=== PATIENT | female | born 1935 | race Caucasian/White ===

== ENCOUNTER 2017-12-04 16:17 | Inpatient (IN) | payer MEDICARE ==
--- NOTE | 2017-12-04 17:43 | RAD ---
PELVIS ONE VIEW 12/04/17 HISTORY: Recent fall. COMPARISON: None. FINDINGS: Fracture right inferior and superior pubic rami as well as a fracture of the right pubic root. There appears to be a fracture of the right sacral strut at zone I, S1 and S2. IMPRESSION: Fracture of the right superior and inferior pubic rami, right pubic root, as well as the right sacrum . POS: [facility]
--- NOTE | 2017-12-04 17:50 | RAD ---
RIGHT HIP TWO VIEW 12/04/17 HISTORY: Fall. COMPARISON: None. FINDINGS: Fracture of the right pubic root, right superior and inferior pubic rami as well as of the right sacr um. There are phleboliths in the pelvis. IMPRESSION: Fracture of the right pubic root, right superior and inferior pubic rami, and right sacrum. POS: [facility]
[2017-12-04 18:03] LABS: #Monocytes 0.7 thou/uL (0.11-0.59); #Neutrophils 7.8 thou/uL (1.40-6.50); %Basophils 0.1 % (0.0-1.0); %Eosinophils 0.1 % (0.0-10.0); %Monocytes 7.5 % (0.0-10.0); %Neutrophils 82.3 % (42.0-75.0); Hemoglobin 12.4 g/dL (12.0-16.0); Mean Corpuscular HGB CONC 33.6 g/dL (32.0-36.0); Mean Corpuscular Hemoglobin 33.3 pg (27.0-31.0); Mean Corpuscular Volume 99.1 fl (81.0-99.0); Mean Platelet Volume 6.3 fL (7.4-10.4); Platelet Count 206 thou/uL (130-400); RBC Distribution Width 11.9 % (11.5-14.5); Red Blood Cell (RBC) Count 3.71 mill/uL (4.20-5.40); White Blood Cell (WBC) Count 9.5 thou/uL (4.8-10.8)
[2017-12-04 18:20] LABS: ALT (SGPT) 19 U/L (8-55); AST (SGOT) 16 U/L (5-34); Albumin 3.1 g/dL (3.4-4.8); Alkaline Phosphatase 89 U/L (40-150); Anion Gap 13 mmol/L (10-20); BUN (Urea Nitrogen) 20 mg/dL (9.8-20.1); Bilirubin, Total 1.3 mg/dL (0.2-1.2); Calc. Creatinine Clearance 0 mL/min (70-130); Calcium 9.7 mg/dL (7.8-10.44); Carbon Dioxide 24 mmol/L (23-31); Chloride 98 mmol/L (98-107); Estimated GFR-MDRD 46; Globulin 2.8 g/dL (2.4-3.5); Glucose 94 mg/dL (83-110); Potassium 4.8 mmol/L (3.5-5.1); Protein, Total 5.9 g/dL (6.0-8.3); Sodium 130 mmol/L (136-145)
[2017-12-04 18:25] LABS: Bilirubin Small (Negative); Blood, Urine Negative (Negative); Clarity CLEAR (Clear); Glucose, Urine (Dipstick) Negative (Negative); Leukocyte Negative (Negative); Nitrite Negative (Negative); Protein, Urine (Dipstick) Trace mg/dL (Neg-Trace); Specific Gravity, Urine 1.023 (1.002-1.036); Urobilinogen 0.2 mg/dL (0.2-1.0)
[2017-12-04] MEDS ORDERED: Acetaminophen 1,000 MG in Premix Bag 1 BAG IVPB SCH (19:30)
[2017-12-04 19:52] LABS: CKMB 0.7 ng/mL (0-6.6); Troponin I 0.048 ng/mL (< 0.028)
[2017-12-04] MEDS ORDERED: hydrALAZINE 20 MG/ML VIAL ONE (20:20)
[2017-12-04] MEDS ORDERED: HYDROcodone/Acetaminophen 5/325 mg Tablet ONE (20:55)
--- NOTE | 2017-12-04 21:39 | RAD ---
CHEST ONE VIEW 12/04/17 HISTORY: Fall. COMPARISON: Chest radiograph from 2004. FINDINGS: There is prominence of the hilum on the right. Nodular projects over the right lung apex. Lungs are h yperinflated. Previous right lower lobe air space opacity as well as obscuration right lateral costophrenic sulcus. Mild S-shaped scoliosis. No displaced rib fracture. IMPRESSION: 1. Prominence of the hilum bilaterally can be seen with pulmonary arterial hypertension or adeno fan. 2. Blunting right lateral costophrenic sulcus with right lower lobe air space consolidation conc erning for infection. 3. Nodularity of the right lung apex. Nonemergent followup recommended. POS: [facility]
--- NOTE | 2017-12-04 21:41 | RAD ---
LEFT WRIST TWO VIEW 12/04/17 HISTORY: Fall. COMPARISON: None. FINDINGS: There is extensive chondrocalcinosis. Severe degenerative disease of the thumb carpometacarpal joint as well as the scaphotrapezium trapezoidal joint. Positive ulnar variance. Erosion of the ulnar stylo id. There is fusion of the hamate and capitate. IMPRESSION: Chondrocalcinosis and subsequent severe degenerative changes. POS: [facility]
--- NOTE | 2017-12-04 21:49 | CT ---
CT OF BRAIN WITHOUT CONTRAST 12/04/17 HISTORY: Fall. COMPARISON: None. FINDINGS: There are multiple areas of loss of luna-white matter differential of occipital lobes bilaterally as well as right parietal lobe. This appears somewhat chronic in nature. There is moderate to severe atr ophy. Moderate dilatation of the ventricular system and extra-axial CSF spaces. Large inferior microangiopathic changes. No hemorrhage is appreciated. Exam is limited due to the obliquity of the scan. The calvarium is intact. IMPRESSION: 1. Limited examination due to obliquity. No acute hemorrhage. 2. Moderate to severe atrophy with chronic microangiopathic changes. POS: [facility]
--- NOTE | 2017-12-04 22:00 | CT ---
CT OF CHEST NONCONTRAST CT THORACIC SPINE WITHOUT CONTRAST AND REFORMATTED IMAGING 12/04/17 CLINICAL HISTORY: Fall with pain. FINDINGS: The thoracic spine reveals multilevel compression deformity with a severe compression fracture of T11 as well as a multilevel end plate irregularity. Previously mild multilevel height loss of the thorac ic spine. There is also a moderate to severe central compression fracture of L1 as well mild to moder ate superior end plate irregularity of L2 and L3. There is a chronic appearing fracture deformity of the manubrium as well as osseous irregularity involving the proximal and distal aspect of the sternal body some of which is distorted by motion artifact, although fractures at the sternal body are not e xcluded. There is multifocal bilateral opacification of pulmonary parenchyma favoring atypical pneumo marichuy along with mild right and minimal left pleural fluid. The lungs are hyperinflated related to COPD . There is atherosclerotic vascular disease. Evaluation of the regional soft tissues is limited by no ncontrast technique. There is bilateral bronchiectasis. IMPRESSION: 1. Multilevel compression deformities of the thoracolumbar spine as above. 2. Fracture deformities of the sternum as above, limited by patient motion. 3. Findings most consistent with multifocal, atypical bilateral pneumonia with associated minima l to mild pleural fluid. POS: [facility]
--- NOTE | 2017-12-04 22:01 | HP ---
REQUESTING PHYSICIAN: Dr. Wilkinson. ATTENDING SURGEON: Dr. Keller. CONSULTATION: Orthopedics, Dr. Dickson. HISTORY OF PRESENT ILLNESS: The patient is an 82-year-old woman, who reportedly fell 3 day s ago injuring her right hip. She was able to continue to ambulate somewhat and then fell again on t he following day. At this time, she remained in bed. When family members checked on her, they broug ht her to the Emergency Department where she underwent evaluation. Examination was noted to have ski n tears on her left upper extremity and radiographs revealed right-sided inferior and superior pubic rami fracture and a sacral fracture at which time we are asked to evaluate the patient for admission and obtained orthopedic consultation. By report from the family and the patient, she denies loss of consciousness or striking her head during either the falls and had no loss of consciousness, shortnes s of breath, dizziness, or chest pain. ALLERGIES: No known drug allergies. CURRENT MEDICATIONS: Tylenol with codeine. Family reports that the patient has been off blood press ure medicines for at least 6 months now. PAST MEDICAL HISTORY: Hypertension, osteoporosis, chronic kidney disease, and vertebral compression fractures. PAST SURGICAL HISTORY: Exploratory laparotomy done in her 20s. Family is unsure of why patient repo rts it was for fertility reasons. SOCIAL HISTORY: The patient currently resides with her sister. She denies alcohol or drug use, but does admit to chewing tobacco. REVIEW OF SYSTEMS: A ten-point review of systems is negative unless otherwise stated. PHYSICAL EXAMINATION: VITAL SIGNS: Blood pressure 178/85, heart rate 87, respirations 16, oxygen saturation is 93% on room air, temperature is 98.6. GENERAL: The patient is resting in the ER bed. She is alert and oriented, responds to simple questi ons appropriately and follows simple commands. Of note, the patient is a very frail, emaciated appea ring woman. HEENT: Head is normocephalic and atraumatic. Eyes, extraocular motions are intact. PERRLA bilatera lly. Ears are atraumatic without discharge. Nose is atraumatic without discharge. Oropharynx is cl ear. The mucous membranes appear dry. NECK: Nontender. Trachea is midline. No JVD. CHEST: Clear to auscultation with moderate inspiratory and expiratory effort. HEART: Regular rate and rhythm. ABDOMEN: Soft, flat and nontender. PELVIS: The patient has significant tenderness to her right side and she lies most comfortably on he r left side with her hip propped up. Her legs somewhat flexed. EXTREMITIES: Neurovascularly intact at times x4. The patient has tenderness to palpation to left wr ist and skin tear was noted. BACK: Atraumatic and nontender. LABORATORY FINDINGS: White blood cell count 9.5, hemoglobin 12.4, hematocrit 36.8, platelets 206. S odium 130, potassium 4.8, chloride 98, CO2 of 24, BUN 20, creatinine 1.12, glucose 94. LFTs are unre markable RADIOGRAPHS: AP pelvis shows a fracture of the right superior and inferior pubic rami, right pubic r oot as well as right sacrum. Two-view of the right hip shows the same. AP chest shows the questiona ble consolidation in the right middle lobe, the right wrist shows no fracture dislocation, significan t osteopenia is noted. ASSESSMENT AND PLAN: 1. Status post ground-level fall with the delayed presentation. 2. Right superior and inferior pubic rami fracture. 3. Right sacral fracture. 4. Left upper extremity skin tear. 5. Significant deconditioning. 6. Acute pain secondary to trauma. 7. Hyponatremia. PLAN: Admit to the surgical floor. Discussion with Orthopedics. Recommended weightbearing as chivo ated. Physical and Occupational Therapy. Gastritis and mechanical DVT prophylaxis. We will await r adiologic interpretation of the chest x-ray. The evaluation, examination, laboratory and radiographi c findings were discussed with Dr. Keller. We will see the patient once she is up on the floor.
[2017-12-04] MEDS ORDERED: traMADol HCl 50 MG TAB PO PRN ×2 (22:03)
[2017-12-04] MEDS ORDERED: Dextrose 50% Abboject 50 ML SYRINGE SLOW IVP PRN (22:03)
[2017-12-04] MEDS ORDERED: Ondansetron ODT 4 MG TAB PO PRN (22:03)
[2017-12-04] MEDS ORDERED: Dextrose 5% in Water 1,000 ML IV PRN (22:03)
[2017-12-04] MEDS ORDERED: Ondansetron HCl/PF 4 MG/2 ML Vial IVP PRN (22:03)
[2017-12-04] MEDS ORDERED: hydrALAZINE 20 MG/ML VIAL SLOW IVP PRN (22:03)
[2017-12-04 22:15] LABS: Bacteria/HPF Rare-Few HPF (None Seen); Hyaline Casts/LPF 0-3 HYALINE CAST LPF (0-3 Hyaline); RBC/HPF 0-3 HPF (0-3); Squamous Epithelial 0-3 HPF (0-3); WBC/HPF 0-3 HPF (0-3)
[2017-12-04] MEDS: Sodium Chloride 0.9% 1,000 ML IV SCH (22:52)
[2017-12-04] MEDS: Famotidine 20 MG TAB PO SCH (22:52)
[2017-12-05 00:13] VITALS: BMI 15.4
[2017-12-05] MEDS: Acetaminophen 500 MG TAB PO SCH ×6 (01:25→21:22)
[2017-12-05 06:26] LABS: #Eosinphils 0.1 thou/uL (0.0-0.7); #Monocytes 0.7 thou/uL (0.11-0.59); #Neutrophils 5.9 thou/uL (1.40-6.50); %Basophils 0.3 % (0.0-1.0); %Eosinophils 0.6 % (0.0-10.0); %Monocytes 9.1 % (0.0-10.0); Hemoglobin 11.3 g/dL (12.0-16.0); Mean Corpuscular HGB CONC 33.4 g/dL (32.0-36.0); Mean Corpuscular Volume 98.8 fl (81.0-99.0); Mean Platelet Volume 6.5 fL (7.4-10.4); Platelet Count 215 thou/uL (130-400); RBC Distribution Width 11.9 % (11.5-14.5); Red Blood Cell (RBC) Count 3.41 mill/uL (4.20-5.40); White Blood Cell (WBC) Count 7.7 thou/uL (4.8-10.8)
[2017-12-05 06:43] LABS: Anion Gap 11 mmol/L (10-20); BUN (Urea Nitrogen) 21 mg/dL (9.8-20.1); Calc. Creatinine Clearance 23 mL/min (70-130); Calcium 9.3 mg/dL (7.8-10.44); Carbon Dioxide 24 mmol/L (23-31); Chloride 100 mmol/L (98-107); Estimated GFR-MDRD 51; Glucose 89 mg/dL (83-110); Phosphorus 4.4 mg/dL (2.3-4.7); Potassium 4.8 mmol/L (3.5-5.1); Sodium 130 mmol/L (136-145)
[2017-12-05] MEDS ORDERED: hydrALAZINE 20 MG/ML VIAL SLOW IVP PRN (11:45)
[2017-12-05] MEDS: Sodium Chloride 0.9% 1,000 ML IV SCH (11:57)
[2017-12-05] MEDS ORDERED: hydrALAZINE 10 MG TAB PO PRN (12:34)
--- NOTE | 2017-12-05 18:52 | PRG ---
DATE OF SERVICE: 12/05/2017 SUBJECTIVE: The patient is hospital day #2 status post admission for a ground-level fall x2 in which she sustained right-sided pelvic fractures, specifically right superior and inferior pubic rami and right sacral fracture along with some skin tears. The patient this morning states that her pain is c ontrolled and she is attempting to eat breakfast. By report from physical therapy, she was able to a t least stand for a few minutes before getting tired. PHYSICAL EXAMINATION: VITAL SIGNS: Temperature is 97.7, heart rate is 68, blood pressure 177/93, respirations 16, oxygen s aturation 94% on 2 liters via nasal cannula. GENERAL: The patient is resting. The patient responds to verbal stimuli and is appropriate and answ ers stating that she is not in pain. HEENT: Unremarkable. LUNGS: Clear to auscultation with moderate inspiratory and expiratory effort. HEART: Regular rate and rhythm. ABDOMEN: Soft, flat with hypoactive bowel sounds and nontender. EXTREMITIES: Neurovascularly intact x4. Her skin tears have been dressed. LABORATORY DATA: White blood cell count 7.7, hemoglobin 11.3, hematocrit 33.7, platelets 215. Sodiu m 130, potassium 4.8, chloride 100, CO2 of 24, BUN 21, creatinine 1.03, glucose 89, magnesium 2.0, ph osphorus 4.4. There are no radiographs to review this morning. ASSESSMENT AND PLAN: 1. Status post ground-level fall with delayed presentation. 2. Right superior and inferior pubic rami fracture. 3. Right sacral fracture. 4. Left upper extremity skin tear. 5. Significant deconditioning. 6. Acute pain secondary to trauma. 7. Hyponatremia, chronic. Plan will be to continue physical and occupational therapy. Case management consult for placement in shelter versus rehabilitation and continue supportive care. The evaluation and examination were done with Dr. Keller during rounds this morning.
[2017-12-05] MEDS: Famotidine 20 MG TAB PO SCH (21:22)
--- NOTE | 2017-12-05 23:35 | PRG ---
DATE OF SERVICE: 12/05/2017 SUBJECTIVE: The patient is hospital day #2 status post ground-level fall, nonoperative pelvic fractu res. The patient reports pain is well controlled. She reports feeling better. Family is at bedside and has no questions at this time. The patient worked with physical therapy earlier. She vocalized no complaint this evening. OBJECTIVE: VITAL SIGNS: Reviewed and stable. The patient is afebrile, resting in bed in no acute distress. LUNGS: Breathing is nonlabored. ASSESSMENT AND PLAN: As documented in daily progress note. Continue care as ordered. Continue vel toring.
[2017-12-06] MEDS: Acetaminophen 500 MG TAB PO SCH ×3 (01:45→08:24)
[2017-12-06] MEDS: Acetaminophen 325 MG TAB PO SCH ×3 (13:11→20:45)
[2017-12-06] MEDS: Famotidine 20 MG TAB PO SCH (20:45)
--- NOTE | 2017-12-06 23:37 | PRG ---
DATE OF SERVICE: 12/06/2017 SUBJECTIVE: Deon Mcgrath is an 82-year-old female status post fall with pubic rami fractures. Hollis carlos has been hemodynamically stable. She worked with physical therapy earlier today. Upon my evaluat ion, family is at bedside along with her medical power of erisa attorney. Nursing staff alerted me to the fact that she has an advanced directive. I discussed this with the patient and the family at bedside and her advanced directive is specifically states that the patient does not want to be intubated; ho wever, she is okay with aggressive medical therapy. The issue of CPR and defibrillation was not addr essed in the advanced directive. I specifically asked the patient in the event of a cardiac arrest, what her wishes were. She does not wish to have CPR, defibrillation, or intubation. At this time, juanis parth's medical power of erisa attorney is at bedside and vocalized understanding. At this time, the raymond ja's code status will be changed to DNR. OBJECTIVE: VITAL SIGNS: Reviewed and stable. GENERAL: Patient is mildly hypertensive. Resting in bed in no acute distress. PULMONARY: Breathin g is nonlabored. NEUROLOGIC: No focal deficit noted. ASSESSMENT AND PLAN: As documented in the daily progress note. Continue care as ordered. Continue to monitor. In addition to code status, patient and family requested inpatient rehabilitation consul tatdanish. I will also order this at this time.
[2017-12-07] MEDS: Acetaminophen 325 MG TAB PO SCH ×6 (00:17→20:50)
--- NOTE | 2017-12-07 13:46 | PQF ---
SETH HASKINS VINCENT U [id number] [facility] 3319 [id number] CLINICAL DOCUMENTATION IMPROVEMENT CLARIFICATION FORM: ICD-10 Updated PLEASE DO AN ADDENDUM TO THE PROGRESS NOTE WITH ANY DOCUMENTATION UPDATES OR ADDITIONS AND CARRY THROUGH TO DC SUMMARY. THANK YOU. Date: 12-07-17 ATTN : DR. RHEA HADLEY Please exercise your independent, professional judgment in responding to the clarification form. Clinical indicators are provided on the bottom of this form for your review Please check appropriate box(s): [ ] Protein Calorie Malnutrition: [ ] Mild [ x ] Moderate [ ] Severe [ ] Other Malnutrition (please specify) __ [ ] Underweight without malnutrition [ x ] Cachexia [ ] Other diagnosis [ ] Unable to determine CLINICAL INDICATORS - SIGNS / SYMPTOMS / LABS BMI of 15.4 ER: CACHEXIA 1-6 PN - CHERYL: EMACIATED APPEARING WOMAN; SIGNIFICANT DECONDITIONING 1-6 DIETARY CONSULT: * The pt is visibly malnourished. * Severe muscle wasting noted to temples, clavicles, arms. Severe fat wasting to chest/ribs and orbital area. * The pt is supposed to be getting Ensure TID at home, * In the last 2 years the pt has lost ~20# since the first time she injured her back. She reports weighing 79# in Sep 2017 and 99# max in 2016. RISK FACTORS DIETARY CONSULT - SUSPECTED CHRONIC POOR INTAKE TREATMENT: 1-6 DIETARY CONSULT: 1. Continue regular diet type. Recommend adding mech soft textures. 2. Recommend ordering Ensure Enlive TID. 3. Consider adding appetite stimulant. THANK YOU, FILOMENA (This form is maintained as a part of the permanent medical record) 2014 [employer]. All Rights Reserved Filomena Pathak RN, BS [email or web address] Cell [facility]
[2017-12-07] MEDS: Acetaminophen 650 MG/20.3 ML UDCUP PO PRN ×2 (14:01→22:21)
--- NOTE | 2017-12-07 17:32 | PRG ---
DATE OF SERVICE: 12/07/2017 SUBJECTIVE: The patient is hospital day #3 status post admission for ground level fall. She sustain ed a right-sided pelvic fracture. The patient has had no issues overnight other than some hypertensi on issues. The patient had previously been on blood pressure medicines, but had discontinued recentl y. We asked the family to please find out what medicine she was on. It appears that they will proba moni need to be restarted again. Pain may be a part of this contributing factor, but they appear to b e being consistently somewhat elevated. The patient is tolerating a diet and was able to stand for a few minutes with physical therapy and has not yet worked with them this morning. PHYSICAL EXAMINATION: VITAL SIGNS: Temperature is 97.7, heart rate 79, blood pressure 176/92, respirations 18, oxygen satu ration 94% on room air. HEENT: Unremarkable. GENERAL: The patient is resting comfortably in bed. She responds appropriately to verbal stimuli an d follows simple commands. LUNGS: Clear to auscultation bilaterally. HEART: Regular rate and rhythm. ABDOMEN: Soft, flat with hypoactive bowel sounds and nontender. EXTREMITIES: Neurovascularly intact x4. Left upper extremity dressing is clean, dry, and intact. LABORATORY DATA: There are no labs or radiographs to review this morning. ASSESSMENT AND PLAN: 1. Status post ground level fall. 2. Right superior and inferior pubic rami fracture. 3. Right sacral fracture. 4. Left upper extremity skin tear. 5. Severe deconditioning. Plan will be to continue awaiting placement in a skilled facility versus rehabilitation. Continue maddox pportive care.
--- NOTE | 2017-12-07 21:07 | PRG ---
DATE OF SERVICE: 12/07/2017 SUBJECTIVE: This is an 82-year-old female status post mechanical fall with pubic rami fractures. Pa in is controlled via p.o. analgesics. Patient is currently awaiting bed availability at inpatient re habilitation. Localized with no complaints this evening. OBJECTIVE: VITAL SIGNS: Reviewed and stable. Last blood pressure 139/82, although she was hypertensive earlier on the day. GENERAL: Patient is resting in bed, no acute distress. LUNGS: Breathing is nonlabored. ASSESSMENT AND PLAN: As documented in daily progress note. Continue care as ordered. Continue to m onitor. Await bed availability.
[2017-12-07] MEDS: Famotidine 20 MG TAB PO SCH (22:21)
[2017-12-08] MEDS: Acetaminophen 325 MG TAB PO SCH ×6 (01:35→20:31)
[2017-12-08] MEDS: Acetaminophen 650 MG/20.3 ML UDCUP PO PRN ×4 (02:13→21:40)
[2017-12-08 06:54] LABS: #Lymphocytes 1.2 thou/uL (1.20-3.40); #Monocytes 0.5 thou/uL (0.11-0.59); #Neutrophils 6.3 thou/uL (1.40-6.50); %Basophils 0.3 % (0.0-1.0); %Eosinophils 0.6 % (0.0-10.0); %Lymphocytes 14.3 % (21.0-51.0); %Monocytes 6.4 % (0.0-10.0); %Neutrophils 78.6 % (42.0-75.0); Hemoglobin 10.9 g/dL (12.0-16.0); Mean Corpuscular HGB CONC 32.7 g/dL (32.0-36.0); Mean Corpuscular Hemoglobin 32.7 pg (27.0-31.0); Mean Corpuscular Volume 99.9 fl (81.0-99.0); Mean Platelet Volume 5.7 fL (7.4-10.4); Platelet Count 306 thou/uL (130-400); RBC Distribution Width 12.1 % (11.5-14.5); Red Blood Cell (RBC) Count 3.33 mill/uL (4.20-5.40); White Blood Cell (WBC) Count 8.1 thou/uL (4.8-10.8)
[2017-12-08 07:17] LABS: Anion Gap 10 mmol/L (10-20); BUN (Urea Nitrogen) 25 mg/dL (9.8-20.1); Calc. Creatinine Clearance 23 mL/min (70-130); Calcium 9.5 mg/dL (7.8-10.44); Carbon Dioxide 29 mmol/L (23-31); Chloride 100 mmol/L (98-107); Estimated GFR-MDRD 51; Glucose 84 mg/dL (83-110); Magnesium 1.6 mg/dL (1.6-2.6); Phosphorus 2.5 mg/dL (2.3-4.7); Potassium 4.4 mmol/L (3.5-5.1); Sodium 135 mmol/L (136-145)
[2017-12-08] MEDS: Amlodipine 5 MG TAB PO SCH (08:24)
--- NOTE | 2017-12-08 19:16 | PRG ---
DATE OF SERVICE: 12/08/2017 ATTENDING PHYSICIAN: Randy Keller D.O. SUBJECTIVE: The patient is status post ground level fall with right superior and inferior pubic rami fracture. She has been managed nonoperatively on the floor. She has been working with physical and occupational therapy. Case management has been involved for discharge planning. OBJECTIVE: VITAL SIGNS: Temperature 97.6, pulse 82, blood pressure 138/87, respirations 16 , O2 sat 95% on room air. CONSTITUTIONAL: Elderly female in no acute distress. HEENT: Atraumatic, normocephalic. PULMONARY: Bilateral breath sounds clear. No respiratory distress. CARDIOVASCULAR: Regular rate and rhythm. Heart sounds normal. ABDOMEN: Soft, nontender, and nondistended. EXTREMITIES: Cap refill brisk. Neurovascularly intact x4 extremities. ASSESSMENT: 1. Status post ground level fall. 2. Right superior and inferior pubic rami fracture. 3. Right sacral fracture. 4. Left upper extremity skin tear. 5. Severe deconditioning. 6. Hypertension, started on Norvasc this a.m. PLAN: 1. Continue mobilization with physical and occupational therapy. 2. Monitor blood pressure and adjust blood pressure medication as indicated. 3. Continue case management for discharge planning. Anticipate patient to discharge to [facility] when bed available. The patient was seen and examined with Dr. Keller who agrees with assessment and plan. [facility]
[2017-12-08] MEDS: Famotidine 20 MG TAB PO SCH (21:40)
[2017-12-09] MEDS: Acetaminophen 325 MG TAB PO SCH ×6 (02:00→20:29)
[2017-12-09] MEDS: Acetaminophen 650 MG/20.3 ML UDCUP PO PRN ×3 (02:46→20:29)
[2017-12-09] MEDS: Amlodipine 5 MG TAB PO SCH (08:52)
--- NOTE | 2017-12-09 12:53 | PRG ---
DATE OF SERVICE: 12/09/2017 ATTENDING PHYSICIAN: Randy Keller D.O. This is Park Askew, nurse practitioner, daily progress note for Dr. Randy Keller. SUBJECTIVE: The patient is status post ground level fall with right superior inferior pubic rami fracture. Nonoperative management was recommended and the patient has been on the surgical floor since admission. She has been working with physical and occupational therapy. Case management is involved for discharge planning. Per conversation with family yesterday, they have elected for patient to go to [facility] when there is a bed available. OBJECTIVE: VITAL SIGNS: Temperature 96.0, pulse 69, blood pressure 185/89. Respirations 14 , O2 sat 96% on room air. It should be noted that the blood pressure was rechecked on morning rounds and it was systolic 156. GENERAL: Elderly female in no acute distress. HEENT: Atraumatic, normocephalic. PULMONARY: Bilateral breath sounds clear. No respiratory distress. CARDIOVASCULAR: Regular rate and rhythm. ABDOMEN: Soft, nontender, nondistended. EXTREMITIES: Cap refill brisk. Neurovascular intact x4 extremities, moves all extremities well. ASSESSMENT: 1. Status post ground level fall. 2. Right superior and inferior pubic rami fracture. 3. Right sacral fracture. 4. Left upper extremity skin tear. 5. Severe deconditioning. 6. Hypertension, controlled on Norvasc. PLAN: 1. Continue mobilization with physical and occupational therapy. 2. Monitor blood pressure. Make adjustments to medication as indicated. 3. Anticipate discharge to [facility] when bed becomes available. Patient was seen and examined by Dr. Keller, attending trauma surgeon, who agrees with the assessment and plan. [facility]
[2017-12-09] MEDS: Famotidine 20 MG TAB PO SCH (21:43)
[2017-12-10] MEDS: Acetaminophen 325 MG TAB PO SCH ×3 (00:49→08:09)
[2017-12-10] MEDS: Acetaminophen 650 MG/20.3 ML UDCUP PO PRN ×2 (08:03→11:32)
[2017-12-10] MEDS: Amlodipine 5 MG TAB PO SCH (08:04)
[2017-12-10 11:52] VITALS: BP 128/70; TEMP 97.5
--- NOTE | 2017-12-10 23:54 | DIS ---
DATE OF ADMISSION: 12/04/2017 DATE OF DISCHARGE: 12/10/2017 ATTENDING PHYSICIAN: Dr. Keller. CONSULTING PHYSICIAN: Dr. Dickson, Orthopedics. HOSPITAL COURSE: Ms. Mcgrath is an 82-year-old lady who fell 3 days prior to arrival to the hospital, injuring her right hip. She apparently was able to continue ambulating and then fell again the following day. After the second fall, she remained in bed and then was subsequently brought to the emergency department where a right-sided inferior superior pubic rami fracture and a sacral fracture were identified. She was admitted to the hospital by Trauma Services with a consult to Orthopedics. Orthopedics recommended weightbearing as tolerated and nonoperative treatment of fractures. She started mobilizing with physical and occupational therapy. Case management was consulted for discharge planning. She wished to go to [facility], so referral was made to their facility. She was accepted to their facility and discharged when they had an available bed. She is to follow up with Dr. Keller and/or Orthopedics as needed. While she was in the hospital, she was started on amlodipine for hypertension. On the day of discharge, blood pressure was within accepted range. She may have a regular diet. She is to continue physical and occupational therapy per [facility] orders. The patient was seen and examined with Dr. Keller who agrees with the assessment and plan for discharge. HILARIO
== END 2017-12-10 12:25 | DRG 552 ==
LOC: ERS 16:17 → SJJU 18:27
PROVIDERS: ADMIT Surgery; ATTEND Surgery
DX: S32.10XA Unspecified fracture of sacrum, initial encounter for closed fracture (principal); R64 Cachexia; S32.511A Fracture of superior rim of right pubis, initial encounter for closed fracture; E87.1 Hypo-osmolality and hyponatremia; Z68.1 Body mass index [BMI] 19.9 or less, adult; W19.XXXA Unspecified fall, initial encounter; Y92.019 Unspecified place in single-family (private) house as the place of occurrence of the external cause; M81.0 Age-related osteoporosis without current pathological fracture; G89.11 Acute pain due to trauma; Z66 Do not resuscitate; I12.9 Hypertensive chronic kidney disease with stage 1 through stage 4 chronic kidney disease, or unspecified chronic kidney disease; N18.9 Chronic kidney disease, unspecified
CPT/HCPCS: 36415; 51701; 70450; 71045; 71250; 72170; 80048; 80053; 81003; 82553; 83735; 84100; 84484; 85025; 96374; A4353; G8978-GP-CM; G8979-GP-CJ; G8987-GO-CK; G8988-GO-CI; J0131; J0360